=== PATIENT | female | born 2000 | race African-American/Black ===

== ENCOUNTER → 2021-12-08 | Emergency (ER) | payer MEDICAID, OTHER ==
[~2021-12-08] VITALS: Ht 160 cm; Wt 59.0 kg
[2021-12-08 19:35] VITALS: BP 122/57
== END | disposition home or self-care (01) ==
LOC: ER 18:58
DX: S39.012A Strain of muscle, fascia and tendon of lower back, initial encounter (principal); V43.62XA Car passenger injured in collision with other type car in traffic accident, initial encounter; Y93.89 Activity, other specified; Y92.410 Unspecified street and highway as the place of occurrence of the external cause; Y99.8 Other external cause status
CPT/HCPCS: 72100; 81025